=== PATIENT | female | born 1995 | race African-American/Black ===

== ENCOUNTER 2016-12-08 16:42 | Emergency (ER) | payer OTHER ==
[~2016-12-08] VITALS: Ht 165.1 cm; Wt 81.7 kg
[~2016-12-08 16:42] MED LIST: VITAMIN D1000 UNI1 PO; WOMEN'S DAILY1 EAC1 PO; ZOFRAN ODT4 MG PO
[2016-12-08] MEDS ORDERED: UNK BIRTH CONTROL (16:54)
[2016-12-08] MEDS ORDERED: ZANTAC 150MG T150 MG PO (17:23)
[2016-12-08 18:29] VITALS: BP 140/92
== END 2016-12-08 18:30 | disposition home or self-care (01) ==
LOC: ER 16:42
DX: K21.9 Gastro-esophageal reflux disease without esophagitis (principal); F10.99 Alcohol use, unspecified with unspecified alcohol-induced disorder

== ENCOUNTER → 2018-11-03 | Emergency (ER) | payer OTHER ==
[~2018-11-03] VITALS: Ht 165.1 cm; Wt 86.2 kg
[~2018-11-03] MED LIST changes: +FLAGYL500 MG PO; +GAS-X125 MG PO; +IMODIUM A-D2 M1 PO; +UNK BIRTH CONTROL; +ZANTAC 150MG T150 MG PO
[2018-11-03 19:32] LABS: URINE BILIRUBIN NEGATIVE (Negative); URINE BLOOD 3+ (Negative); URINE CLARITY TURBID; URINE COLOR YELLOW; URINE GLUCOSE-RANDOM* NEGATIVE (Negative); URINE KETONES NEGATIVE (Negative); URINE LEUKOCYTES-REFLEX NEGATIVE (Negative); URINE NITRITE-REFLEX NEGATIVE (Negative); URINE PROTEIN (DIPSTICK) NEGATIVE (Negative); URINE SPECIFIC GRAVITY >= 1.030 (1.005-1.035); URINE UROBILINOGEN 0.2 E.U./dl (0.2-1.0)
[2018-11-03 19:43] LABS: AMORPHOUS URATES Moderate /LPF (None Seen); BACTERIA-REFLEX 1-9 Few /HPF (None Seen); CASTS None Seen /LPF (None Seen); CRYSTALS None Seen /LPF (None Seen); SQUAMOUS None Seen /LPF (0-3); URINE RBC 0-2 Rare /HPF (0-2); URINE WBC-REFLEX None Seen /HPF (0-5)
[2018-11-03 19:57] LABS: ABSOLUTE NEUTROPHILS 4.3 thou/uL (1.4-8.2); BASOPHILS 0.5 % (0.0-2.0); EOSINOPHILS 2.8 % (0.0-3.0); HEMATOCRIT 38.4 % (37.0-47.0); LYMPHOCYTES 27.2 % (24.0-44.0); MCH 29.5 pg (26.0-34.0); MCHC 33.8 g/dL (28.0-37.0); MCV 87.1 fL (80.0-100.0); MONOCYTES 11.3 % (1.0-8.0); PLATELET COUNT 394 thou/uL (150-400); POLYS 58.2 % (36.0-66.0); RBC 4.41 mil/uL (4.20-5.00); RDW 12.6 % (10.5-14.5); WBC 7.3 thou/uL (4.0-11.0)
[2018-11-03 20:05] LABS: CALCIUM 9.1 mg/dL (8.5-10.1); CREATININE 0.8 mg/dL (0.6-1.0); POTASSIUM 3.3 mmol/L (3.5-5.1)
[2018-11-03 20:10] LABS: ALBUMIN 3.8 g/dL (3.4-5.0); TOTAL BILIRUBIN 0.3 mg/dL (<0.1-1.0); TOTAL PROTEIN 8.1 g/dL (6.4-8.2)
[2018-11-03 21:40] VITALS: BP 150/80
== END ==
LOC: ER 18:47
PROVIDERS: Physician Assistant
DX: E87.6 Hypokalemia (principal); R19.7 Diarrhea, unspecified; N93.8 Other specified abnormal uterine and vaginal bleeding

== ENCOUNTER 2018-12-17 18:41 | Emergency (ER) | payer OTHER ==
[~2018-12-17] VITALS: Ht 165.1 cm; Wt 86.2 kg
[2018-12-17 18:49] VITALS: BP 151/86
== END 2018-12-17 20:01 | disposition home or self-care (01) ==
LOC: ER 18:41
DX: Z32.01 Encounter for pregnancy test, result positive (principal)

== ENCOUNTER 2019-01-06 15:03 | Emergency (ER) | payer OTHER ==
[~2019-01-06] VITALS: Ht 167.6 cm; Wt 81.7 kg
[2019-01-06 17:06] LABS: HEMATOCRIT 38.2 % (37.0-47.0); HEMOGLOBIN 13.3 gm/dL (12.0-15.0); MCHC 34.8 g/dL (28.0-37.0); MCV 86.2 fL (80.0-100.0); RBC 4.43 mil/uL (4.20-5.00); RDW 12.4 % (10.5-14.5); WBC 12.5 thou/uL (4.0-11.0)
[2019-01-06 19:06] VITALS: BP 143/78
== END 2019-01-06 19:08 | disposition home or self-care (01) ==
LOC: ER 15:03
PROVIDERS: Physician Assistant
DX: O46.91 Antepartum hemorrhage, unspecified, first trimester (principal); Z3A.08 8 weeks gestation of pregnancy